=== PATIENT | female | born 1990 | race Caucasian/White ===

== ENCOUNTER 2021-11-08 20:24 | Emergency (ER) | payer MEDICAID, OTHER ==
[2021-11-08] MEDS ORDERED: Ventolin HFA Inhaler 60 PUFF INHALER ONE (21:05)
[2021-11-08 21:25] LABS: SARS-CoV-2 NAA Rapid Test Not Detected (NotDetected)
== END 2021-11-08 22:34 | disposition home or self-care (01) ==
LOC: CSHERS 20:24
DX: J10.1 Influenza due to other identified influenza virus with other respiratory manifestations (principal); I10 Essential (primary) hypertension; Z20.822 Contact with and (suspected) exposure to COVID-19
CPT/HCPCS: 0240U; 71045; 94664